=== PATIENT | female | born 1975 | race African-American/Black ===

== ENCOUNTER 2024-02-08 05:49 | Emergency (ER) | payer OTHER ==
[~2024-02-08] VITALS: Ht 167.6 cm; Wt 163.7 kg
[2024-02-08 05:53] VITALS: PULSE 97; RESP 18; TEMP 98.8
[2024-02-08] MEDS ORDERED: GABAPENTIN300 MG PO (08:10)
[2024-02-08 08:29] VITALS: BP 133/89; PULSE 86; RESP 17; O2SAT 100
== END 2024-02-08 08:31 | disposition home or self-care (01) ==
LOC: ER 06:36
DX: R10.32 Left lower quadrant pain (principal); G57.12 Meralgia paresthetica, left lower limb; I10 Essential (primary) hypertension; N80.9 Endometriosis, unspecified; E66.01 Morbid (severe) obesity due to excess calories
CPT/HCPCS: 72192; 99283